=== PATIENT | male | born 1955 | race Caucasian/White ===

== ENCOUNTER 2017-06-07 16:19 | Emergency (ER) | payer OTHER ==
[2017-06-07 19:13] LABS: ADD MAN DIFF? NO
[2017-06-07 19:14] LABS: BASOPHIL # 0.1 10^3/ul (0.0-0.1); BASOPHILS % 0.6 % (0.0-2.0); EOSINOPHILS % 0.3 % (0.0-7.0); HEMATOCRIT 45.1 % (42.0-52.0); HEMOGLOBIN 15.4 g/dl (14.0-18.0); LYMPHOCYTES # 2.6 10^3/ul (0.8-2.9); LYMPHOCYTES % 27.2 % (15.0-51.0); MEAN CORPUSCULAR HEMOGLOBIN 31.6 pg (29.0-33.0); MEAN CORPUSCULAR HGB CONC 34.1 g/dl (32.0-37.0); MEAN CORPUSCULAR VOLUME 92.4 fl (82.0-101.0); MEAN PLATELET VOLUME 8.8 fl (7.4-10.4); MONOCYTE # 0.9 10^3/ul (0.3-0.9); MONOCYTES % 8.8 % (0.0-11.0); NEUTROPHIL # 6.1 10^3/ul (1.6-7.5); NEUTROPHILS % 62.8 % (39.0-77.0); PLATELET COUNT 427 10^3/UL (140-415); RED BLOOD COUNT 4.88 10^6/ul (4.70-6.10); RED CELL DISTRIBUTION WIDTH 12.6 % (11.5-14.5)
[2017-06-07 19:14] LABS: WHITE BLOOD COUNT 9.7 10^3/ul (4.8-10.8)
[2017-06-07 19:36] LABS: ANION GAP 16 (8-16); BLOOD UREA NITROGEN 15 mg/dl (7-20); CALCIUM 9.7 mg/dl (8.4-10.2); CARBON DIOXIDE 28 mmol/L (21-31); CHLORIDE 104 mmol/L (97-110); CREATININE 0.91 mg/dl (0.61-1.24); GLUCOSE 108 mg/dl (70-220); POTASSIUM 3.8 mmol/L (3.5-5.1); SODIUM 144 mmol/L (135-144)
[2017-06-07 19:49] LABS: TROPONIN-I < 0.012 ng/ml (0.00-0.12)
== END 2017-06-07 21:25 | disposition home or self-care (01) ==
LOC: E/R 16:19
DX: S06.0X0A Concussion without loss of consciousness, initial encounter (principal); R07.9 Chest pain, unspecified; F17.210 Nicotine dependence, cigarettes, uncomplicated; W19.XXXA Unspecified fall, initial encounter; Y92.9 Unspecified place or not applicable
CPT/HCPCS: 36415; 70450; 71045; 80048; 84484; 85025; 93005; 99285-25